=== PATIENT | female | born 1950 | race Asian ===

== ENCOUNTER 2022-01-02 08:40 | Emergency (ER) | payer MEDICARE ==
[~2022-01-02] VITALS: Ht 157.5 cm; Wt 56.4 kg
[2022-01-02] MEDS ORDERED: IBUPROFEN 400 MG TABLET PO ONE (10:15)
[2022-01-02 10:24] VITALS: BP 148/87
== END 2022-01-02 10:26 | disposition home or self-care (01) ==
LOC: EMS 08:43
DX: S80.11XA Contusion of right lower leg, initial encounter (principal); S40.021A Contusion of right upper arm, initial encounter; I10 Essential (primary) hypertension; V49.9XXA Car occupant (driver) (passenger) injured in unspecified traffic accident, initial encounter; Y93.89 Activity, other specified; Y92.89 Other specified places as the place of occurrence of the external cause; Y99.8 Other external cause status
CPT/HCPCS: 99282; Z7502; Z7610